=== PATIENT | female | born 1945 | race African-American/Black ===

== ENCOUNTER 2020-09-20 16:22 | Inpatient (IN) | payer MEDICARE, MEDICAID, SELFPAY ==
[2020-09-20] VITALS (41 sets, daily range): BP systolic 170–201; BP diastolic 89–126; PULSE 105–136; RESP 20–57; TEMP 36.1–36.3; O2SAT 92–100; BMI 25.9
--- NOTE | ~2020-09-20 | XR_ITS ---
XR chest 1V 09/20/2020 17:11 Indication: Weakness. Poor historian. Procedure: AP view of the chest Comparison: No prior studies for comparison. Findings: Status post median sternotomy for CABG. Heart size normal for technique. No focal air space disease, pulmonary edema, pleural effusion or suspected pneumothorax. Impression: 1: No acute cardiopulmonary disease. Reviewed, dictated and finalized at location A. CLUB HEAD INSPECTOR Impression: 1: No acute cardiopulmonary disease.
--- NOTE | ~2020-09-20 | CT_ITS ---
EXAMINATION: CT cervical spine wo con DATE: 09/20/2020 17:42 INDICATION: Neck pain. TECHNIQUE: Computed tomography (CT) of the cervical spine was performed without intravenous contrast. The dose-length product was 337 mGy-cm. Automated exposure control and iterative reconstruction tech nique were employed. COMPARISON: None FINDINGS: There is dextroscoliosis of the cervical spine. There is mild multilevel uncinate hypertrop hy. There is carotid atherosclerosis. Odontoid process within normal limits. Mild emphysema of the bahman ng apices. No acute fracture or traumatic malalignment. There is an old spinous process fracture of C 7. IMPRESSION: 1. No acute abnormality of the cervical spine. 2: Mild cervical spondylosis with dextrocurvature of the cervical spine. Reviewed, dictated and finalized at location A. RT/EXPORT ADMINISTRATOR
--- NOTE | ~2020-09-20 | CT_ITS ---
EXAMINATION: CT abdomen pelvis wo con DATE: 09/20/2020 17:42 INDICATION: Patient is confused. Weakness. Back pain. TECHNIQUE: Computed tomography (CT) of the abdomen and pelvis was performed without intravenous contr ast. The dose-length product was 704.03 mGy-cm. Automated exposure control and iterative reconstructi on technique were employed. COMPARISON: None. FINDINGS: There is bibasilar atelectasis. Heart size normal. No significant pleural or pericardial ef fusion. There is moderate diffuse atherosclerosis without aneurysm. No lymphadenopathy. No free air or free f luid. Tiny fat-containing umbilical hernia. Colonic diverticulosis without evidence for diverticuliti s. There is a 3.6 cm left adrenal mass. There is a hyperdense cyst of the left kidney posteriorly. No renal stones or hydronephrosis. Bladder is decompressed. There is fusion at L4-5. There is moderate- severe lumbar spondylosis. IMPRESSION: 1. No acute abdominal abnormality. 2: Left adrenal mass measuring 3.6 cm which may represent an adenoma or less likely metastatic diseas e. Reviewed, dictated and finalized at location A. STRIPER IMPRESSION: 1. No acute abdominal abnormality. 2: Left adrenal mass measuring 3.6 cm which may represent an adenoma or less li leo metastatic disease.
--- NOTE | ~2020-09-20 | CT_ITS ---
EXAMINATION: CT brain wo con DATE: 09/20/2020 17:42 INDICATION: Weakness TECHNIQUE: Computed tomography (CT) of the head was performed without intravenous contrast. The dose- length product was 605.33 mGy-cm. The mA was adjusted according to patient size. Iterative reconstruc tion technique was employed. COMPARISON: None FINDINGS: Generalized atrophy. There are scattered moderate periventricular and subcortical white mat ter changes, most likely related to small vessel ischemic disease (microangiopathy). No acute intracr anial hemorrhage, infarction, mass or mass effect. Visualized aspects of the sinuses and mastoids are pneumatized. No depressed skull fractures. IMPRESSION: 1. No acute intracranial abnormality. Reviewed, dictated and finalized at location A. E CREW SUPERVISOR
--- NOTE | 2020-09-20 16:53 | ECG_ITS ---
Measurements Intervals [place] Rate: 130 P: 80 GA: 136 QRS: 55 QRSD: 61 T: 49 QT: 294 QTc: 433 Interpretive Statements SINUS TACHYCARDIA BORDERLINE ST-T WAVE ABNORMALITY- INFERIOR LEADS BASELINE ARTIFACT- I, II, III, AVR, AVL, AVF ABNORMAL ECG Electronically Signed On 09-20-2020 19:20:11 BUMP GRADER OPERATOR by Brian Monterroso D.O.
--- NOTE | 2020-09-20 16:54 | ED.WEAKNESS ---
HPI - Weakness General Chief complaint: Weakness Stated complaint: neck pain x 5 days Time Seen by Provider: 09/20/20 16:53 History of Present Illness HPI Narrative: 75 yo female w/ DM presents to the ED for weakness. Her family member reports that she has had increasing weakness for the past few days, now she is not able to stand or walk on her own. She has also been having worsening neck pain, which she says is new. SHe denies any fall or injury. She has not been monitoring her blood sugar. She does endorse occasional SOB. No focal weakness, fever, dysuria, chest pain. History limited by poor historian. Related Data Home Medications Medication Instructions Recorded Confirmed aspirin [Aspir-81] 81 mg PO DAILY 09/20/20 09/20/20 dexamethasone 20 mg PO WEEKLY 09/20/20 09/20/20 furosemide 20 mg PO DAILY 09/20/20 09/20/20 glimepiride 1 mg PO BID 09/20/20 09/20/20 isosorbide mononitrate 30 mg PO DAILY 09/20/20 09/20/20 losartan 100 mg PO DAILY 09/20/20 09/20/20 metformin 1,000 mg PO DAILY 09/20/20 09/20/20 methimazole 5 mg PO DAILY 09/20/20 09/20/20 metoprolol succinate 50 mg PO DAILY 09/20/20 09/20/20 pantoprazole 40 mg PO DAILY 09/20/20 09/20/20 potassium chloride 20 meq PO DAILY 09/20/20 09/20/20 Allergies Allergy/AdvReac Type Severity Reaction Status Date / Time codeine Allergy Nausea and Verified 09/20/20 16:47 Vomiting Penicillins Allergy Unknown Verified 09/20/20 16:47 Sulfa (Sulfonamide Allergy Unknown Verified 09/20/20 16:47 Antibiotics) Review of Systems Review of Systems: All systems reviewed & are unremarkable except as noted in HPI and below Constitutional: Constitutional: Reports fatigue, Denies fever(s) and Reports weakness ENT: Denies sore throat Cardiovascular: Cardiovascular: Denies chest pain Respiratory: Respiratory: Reports dyspnea Gastrointestinal: Gastrointestinal: Denies vomiting Genitourinary: Genitourinary: Denies dysuria Musculoskeletal: Musculoskeletal: Reports back pain Neurologic: Reports dizziness, Denies focal weakness and Reports weakness [facility] Past Medical History Medical History (Updated 09/22/20 @ 17:36 by Corby Woods MD) CHF (congestive heart failure) COPD (chronic obstructive pulmonary disease) Coronary artery disease Diabetes mellitus Essential hypertension GERD (gastroesophageal reflux disease) Hyperlipidemia Migraines Multiple myeloma Obstructive sleep apnea on CPAP Surgical History Surgical History (Updated 09/20/20 @ 23:02 by Martita Nunez DO) History of tonsillectomy and adenoidectomy Hx of CABG 3 vessel Hx of cholecystectomy Family History Family History Sibling Acute myocardial infarction Father Asthma Mother Diabetes mellitus Social History Social History (Updated 09/20/20 @ 23:06 by Martita Nunez DO) Social History: Primary care physician: Dr. Ryan Chu Code status: Full code Surrogate decision maker: Franky Gonzalez (son) Smoking packs per day: 0.5 Smoking cigarettes per day: 10.0 Smoking status: Current every day smoker Tobacco type: cigarettes Alcohol intake: never Substance use: never Substance use type: does not use Living arrangements: with family Gender identity (if verbalized by the patient): Female Sexual Orientation (if Verbalized by the Patient): Straight or Heterosexual Spiritual care concerns: No Comments history limited by poor historian Exam Const: General: no acute distress, alert and ill appearing acutely and chronically Orientation/consciousness: patient oriented x3 HENMT: Mouth: Yes dry mucous membranes Resp: Effort & Inspection: normal respiratory effort Auscultation: clear to auscultation bilaterally Cardio: Rate: tachycardic Rhythm: regular rhythm GI: GI Palp: Yes Tenderness to palpation present (GI) (diffuse) and Yes Guarding due to palpation present (GI) Skin: General s
[2020-09-20 17:11] LABS: Basophils Absolute Auto 0.1 K/mm3 (0.0-0.1); Basophils Percent Auto 0.5 % (0.2-1.2); Eosinophils Percent Auto 0.2 % (0-4.4); Hematocrit 41.1 % (37.0-47.0); Hemoglobin 13.3 g/dL (12.0-15.0); Immature Granulocyte Absolute 0.05 K/mm3 (0.00-0.031); Immature Granulocyte Percent A 0.5 % (0-0.5); Lymphocytes Absolute Auto 1.23 K/mm3 (0.9-3.2); Lymphocytes Percent Auto 11.1 % (18.3-44.2); Mean Corpuscular HGB Conc 32.4 g/dl (32-36); Mean Corpuscular Hemoglobin 28.4 pg (26-34); Mean Corpuscular Volume 87.6 fl (80-100); Mean Platelet Volume 9.5 fl (7.4-10.4); Monocytes Absolute Auto 1.3 K/mm3 (0.1-0.6); Neutrophils Absolute Auto 8.4 K/mm3 (1.3-6.7); Neutrophils Percent Auto 75.7 % (45.5-73.1); Nucleated Red Blood Cells Perc 0.2 % (0.0-0.2); Platelet Count Result 443 k/mm3 (150-375); Red Blood Count 4.69 M/mm3 (4.2-5.4); Red Cell Distribution Width 17.2 % (11.5-14.5)
[2020-09-20 17:23] LABS: Alanine Aminotransferase 16 U/L (4-35); Albumin Level 3.6 g/dL (3.5-5.1); Alkaline Phosphatase 97 U/L (38-126); Anion Gap 5 mmol/L (8-16); Aspartate Amino Transferase 17 U/L (14-36); Bilirubin,Total 0.5 mg/dL (0.2-1.3); Blood Urea Nitrogen 12 mg/dL (7-17); Calcium 11.7 mg/dL (8.4-10.2); Carbon Dioxide 31 mmol/L (22-30); Chloride 105 mmol/L (98-107); Estimated CRCL calculation 44 ml/min; Estimated Glomerular Filt Rate > 60; Glucose 373 mg/dL (65-105); Potassium 3.8 mmol/L (3.4-5.0); Sodium 141 mmol/L (137-145)
[2020-09-20 17:31] LABS: Lipase 81 U/L (23-300)
[2020-09-20 17:31] LABS: Lactic Acid Reflex 1.4 mmol/L (0.7-2.1)
[2020-09-20 17:35] LABS: Glucose Point of Care 379 (65-105)
[2020-09-20 17:36] LABS: Beta-Hydroxybutyrate/Acetoacetate 0.71 mmol/L (0.02-0.27)
[2020-09-20 17:38] LABS: Add Urine Microscopic? YES; Appearance Urine Clear (Clear); Bilirubin Urine Negative (Negative); Blood Urine 1+ (Negative); Color Urine Yellow (Yellow); Glucose Urine UA 3+ mg/dL (Negative); Ketones Urine Trace mg/dL (Negative); Leukocyte Esterase Ur Negative LEU/UL (Negative); Mucus Urine Rare /lpf; Nitrate Urine Negative (Negative); Protein Urine 1+ mg/dL (Negative); Specific Grav Ur 1.028 (1.001-1.035); Squamous Epithelial Cell Urine Occasional /hpf (Few); Urobilinogen Urine Negative mg/dL (<2.0); WBC Urine 0-3 /hpf
[2020-09-20] MEDS: SODIUM CHLORIDE 0.9% IV 1,000 ML 999 ML IV CONT (17:53)
[2020-09-20] MEDS: INSULIN HUMAN REGULAR (*BKC) 100 UNITS/ML 6 UNITS IV PUSH (17:55)
[2020-09-20 18:06] LABS: INR 1.1; Prothrombin Time 14.3 Seconds (11.1-14.7)
[2020-09-20 18:07] LABS: Partial Thromboplastin Time 30.6 SECONDS (22.3-36.8)
[2020-09-20 19:27] LABS: Thyroid Stimulating Hormone < 0.015 uIU/mL (0.465-4.680)
[2020-09-20] MEDS: SODIUM CHLORIDE 0.9% IV 500 ML 999 ML IV CONT (19:55)
[2020-09-20] MEDS: LABETALOL HCL INJ 100 MG/20 ML VIAL 10 MG IV PUSH (19:56)
--- NOTE | 2020-09-20 22:41 | ADMGEN ---
This patient, Dahlia Leon, was admitted to IMU Room 206-01 on 09/20/20 at 2205. Patient/family oriented to hospital policies and general routines including ID bracelet, bed and alarms, visiting hours, pain management, procedures, bathroom and other care routines, personal items, smoking policy, room service/diet, and visiting hours. Information on how to activate the Rapid Response Team has been discussed. Patient/Family are encouraged to report perceived risks to care and to ask questions if they do not understand what they are told or what they should do.
--- NOTE | 2020-09-20 22:51 | PM.IMHP ---
H&P: HPI History of Present Illness Date/Time: 09/20/20 23:30 Chief Complaint: Weakness, confusion Narrative: Dahlia Leon is a 75 year old female with a past medical history of multiple myeloma, type 2 diabetes mellitus, and hyperthyroidism who presented to the ER from home for evaluation of increased weakness and increased confusion from baseline. Source of information is ER records and family report. At the time of my evaluation the patient is oriented only to her name and is not answering questions. She will intermittently follow simple commands. Family reported that the patient had been having increased weakness for the last few days. She had not been able to stand or walk on her own. He had reported worsening neck pain. She had not had any fall or known injury. She does have a history of diabetes but has not been checking her blood glucoses. In the ER the patient had reported shortness of breath and was noted to be tachypneic. She denies any chest pain. The patient herself was a poor historian in the ER. At the time of my evaluation the patient was not answering questions and was wearing auto titrating CPAP. Was noted to be tachycardic in the ER. Labs obtained at that time demonstrated that her hyperthyroidism has not been adequately controlled with medications. Was noted to be hyperglycemic and hypercalcemic. She was admitted as observation status in the setting. Review of Systems Review of Systems: ROS unobtainable: Yes unobtainable due to medical condition (Encephalopathy) [facility] Past Medical History Medical History (Updated 09/21/20 @ 03:12 by Martita Nunez DO) CHF (congestive heart failure) COPD (chronic obstructive pulmonary disease) Coronary artery disease Diabetes mellitus Essential hypertension GERD (gastroesophageal reflux disease) Hyperlipidemia Migraines Multiple myeloma Obstructive sleep apnea on CPAP Surgical History Surgical History (Updated 09/20/20 @ 23:02 by Martita Nunez DO) History of tonsillectomy and adenoidectomy Hx of CABG 3 vessel Hx of cholecystectomy Family History Family History Sibling Acute myocardial infarction Father Asthma Mother Diabetes mellitus Social History Social History (Updated 09/20/20 @ 23:06 by Martita Nunez DO) Social History: Primary care physician: Dr. Ryan Chu Code status: Full code Surrogate decision maker: Franky Gonzalez (son) Smoking packs per day: 0.5 Smoking cigarettes per day: 10.0 Smoking status: Current every day smoker Tobacco type: cigarettes Alcohol intake: never Substance use: never Substance use type: does not use Living arrangements: with family Gender identity (if verbalized by the patient): Female Sexual Orientation (if Verbalized by the Patient): Straight or Heterosexual Spiritual care concerns: No Meds Home Medications and Allergies Home Medications Medication Instructions Recorded Confirmed Type aspirin [Aspir-81] 81 mg PO DAILY 09/20/20 09/20/20 History dexamethasone 20 mg PO WEEKLY 09/20/20 09/20/20 History furosemide 20 mg PO DAILY 09/20/20 09/20/20 History glimepiride 1 mg PO BID 09/20/20 09/20/20 History isosorbide mononitrate 30 mg PO DAILY 09/20/20 09/20/20 History losartan 100 mg PO DAILY 09/20/20 09/20/20 History metformin 1,000 mg PO DAILY 09/20/20 09/20/20 History methimazole 5 mg PO DAILY 09/20/20 09/20/20 History metoprolol succinate 50 mg PO DAILY 09/20/20 09/20/20 History pantoprazole 40 mg PO DAILY 09/20/20 09/20/20 History potassium chloride 20 meq PO DAILY 09/20/20 09/20/20 History Allergies Allergy/AdvReac Type Severity Reaction Status Date / Time codeine Allergy Nausea and Verified 09/20/20 16:47 Vomiting Penicillins Allergy Unknown Verified 09/20/20 16:47 Sulfa (Sulfonamide Allergy Unknown Verified 09/20/20 16:47 Antibiotics) Vital Signs Vital Signs - 24 hr 09/20
[2020-09-20] MEDS: LACTATED RINGERS 1,000 ML 125 ML IV CONT (23:04)
[2020-09-20 23:11] LABS: Glucose Point of Care 171 (65-105)
[2020-09-21] VITALS (18 sets, daily range): BP systolic 151–206; BP diastolic 79–101; PULSE 74–108; RESP 12–24; TEMP 36–37; O2SAT 95–100
[2020-09-21] MEDS: METOPROLOL TARTRATE INJ 5 MG/5 ML VIAL IV PUSH (00:06)
[2020-09-21] MEDS: ATORVASTATIN 10 MG TABLET PO ×2 (00:07→19:56)
[2020-09-21] MEDS: methiMAzole 5 MG TAB PO ×4 (00:18→21:01)
[2020-09-21] MEDS: METOPROLOL TARTRATE INJ 5 MG/5 ML VIAL 10 MG IV PUSH ×2 (05:27→20:57)
[2020-09-21 05:49] LABS: Hemoglobin 11.4 g/dL (12.0-15.0); Mean Corpuscular HGB Conc 31.7 g/dl (32-36); Mean Corpuscular Hemoglobin 28.2 pg (26-34); Mean Corpuscular Volume 89.1 fl (80-100); Mean Platelet Volume 9.8 fl (7.4-10.4); Platelet Count Result 400 k/mm3 (150-375); Red Blood Count 4.04 M/mm3 (4.2-5.4); Red Cell Distribution Width 17.2 % (11.5-14.5); White Blood Count 9.5 K/mm3 (4.5-10.0)
[2020-09-21 06:02] LABS: Anion Gap 3 mmol/L (8-16); Blood Urea Nitrogen 8 mg/dL (7-17); Calcium 10.2 mg/dL (8.4-10.2); Carbon Dioxide 29 mmol/L (22-30); Chloride 109 mmol/L (98-107); Estimated CRCL calculation 57 ml/min; Estimated Glomerular Filt Rate > 60; Glucose 196 mg/dL (65-105); Phosphorus 2.9 mg/dL (2.5-4.5); Potassium 3.7 mmol/L (3.4-5.0); Sodium 141 mmol/L (137-145)
[2020-09-21] MEDS: LACTATED RINGERS 1,000 ML 125 ML IV CONT ×3 (06:50→23:09)
[2020-09-21] MEDS: METOPROLOL SUCCINATE EXT REL 50 MG TABCR PO (07:59)
[2020-09-21] MEDS: ASPIRIN 81 MG ENTERIC TABLET PO (07:59)
[2020-09-21] MEDS: GLIMEPIRIDE 1 MG TABLET PO ×2 (07:59→16:43)
[2020-09-21] MEDS: PANTOPRAZOLE 40 MG TABLET PO (08:00)
[2020-09-21] MEDS: POTASSIUM CHLORIDE 20 MEQ TABLET.ER PO (08:00)
[2020-09-21] MEDS: metFORMIN HCL 500 MG TABLET 1000 MG PO (08:00)
[2020-09-21] MEDS: LOSARTAN POTASSIUM 100 MG TABLET PO (08:00)
[2020-09-21] MEDS: ISOSORBIDE MONONITRATE 30 MG TAB.ER.24H PO (08:00)
[2020-09-21] MEDS: ENOXAPARIN 40 MG/0.4 ML SYRINGE SUB-Q (08:01)
[2020-09-21 08:37] LABS: Glucose Point of Care 195 (65-105)
[2020-09-21] MEDS: INSULIN ASPART (*BKC) 100 UNITS/ML SUB-Q ×2 (12:01→16:50)
[2020-09-21 12:26] LABS: Glucose Point of Care 227 (65-105)
--- NOTE | 2020-09-21 13:02 | PM.IMPN ---
Progress Note: A&P Assessment and Plan (1) Metabolic encephalopathy: Code(s): G93.41 - Metabolic encephalopathy Status: Acute Assessment and Plan: Resolved. Supportive care Continue to monitor (2) Uncontrolled hypertension: Code(s): I10 - Essential (primary) hypertension Status: Acute Assessment and Plan: Re started home meds Improved. (3) Type 2 diabetes mellitus with hyperglycemia: Qualifiers: Diabetes mellitus correction insulin use: without correction use Qualified Code(s): E11.65 - Type 2 diabetes mellitus with hyperglycemia Code(s): E11.65 - Type 2 diabetes mellitus with hyperglycemia Status: Acute Assessment and Plan: ISS as needed 1800 calorie diet Accu checks ACHS Metformin + Gyburide (4) Hyperthyroidism: Code(s): E05.90 - Thyrotoxicosis, unspecified without thyrotoxic crisis or storm Status: Acute Assessment and Plan: Dexamethasone + Methimazole (5) Hypercalcemia: Code(s): E83.52 - Hypercalcemia Status: Acute Assessment and Plan: Resolved IV fluids running. Subjective Date/time seen: 09/21/20 13:02 I feel well Review of Systems Review of Systems: Narrative: Unable to get a thorough review Cardiovascular: Comments: Chest pain with radiation to the jaw bilaterally Exam Narrative: Exam Narrative: Sitting in bed. Const: General: comfortable, no acute distress, alert, awake, Physically active and other (Chronically ill looking.) Nutritional Appearance: thin Orientation/consciousness: patient oriented x3 HENMT: Head: normocephalic Ears: hearing grossly normal bilaterally General nose exam: Normal external nose present Face and sinus: normal facial exam Eyes: General: appearance normal, both eyes and all related structures Pupils: Equal, round and reactive pupils present EOM: EOMs intact bilaterally Neck: Neck: no lymphadenopathy, supple and no JVD Lymphatic: no lymphadenopathy noted Resp: Effort & Inspection: able to speak in complete sentences Auscultation: clear to auscultation bilaterally Cardio: Jugular venous distension: no JVD Rate: regular rate Rhythm: regular rhythm GI: GI Palp: Yes Soft to palpation and Yes No hepatosplenomegaly present Skin: Rashes: no rashes Neuro: General: patient oriented x3 and CN's II-XI intact bilaterally Cranial nerves: Yes CN's II-XII intact bilaterally and Yes Equal, round and reactive pupils present Cognition (Neuro): normal cognition Motor exam (neuro): 12/18 motor strength present throughout Extrem: General: no pedal edema Objective Data Vital Signs Vital Signs: Vital Signs - 24 hr 09/20/20 16:33 09/20/20 16:48 09/20/20 16:49 Temperature 97.4 F L Pulse Rate 136 H 132 H 131 H Respiratory Rate 20 35 H 26 H Blood Pressure 185/95 H 195/107 H Pulse Oximetry 96 96 95 09/20/20 17:00 09/20/20 17:01 09/20/20 17:02 Temperature Pulse Rate 130 H 126 H 128 H Respiratory Rate 22 H 28 H 31 H Blood Pressure 182/113 H 182/113 H Pulse Oximetry 95 92 97 09/20/20 17:15 09/20/20 17:44 09/20/20 17:45 Temperature Pulse Rate 126 H 116 H 114 H Respiratory Rate 30 H 29 H 28 H Blood Pressure 190/90 H Pulse Oximetry 97 98 09/20/20 17:46 09/20/20 17:47 09/20/20 18:00 Temperature Pulse Rate 115 H 110 H 112 H Respiratory Rate 27 H 27 H 28 H Blood Pressure 193/98 H Pulse Oximetry 93 97 97 09/20/20 18:01 09/20/20 18:15 09/20/20 18:17 Temperature Pulse Rate 112 H 114 H 117 H Respiratory Rate 28 H 30 H 28 H Blood Pressure 199/93 H 194/100 H Pulse Oximetry 95 100 09/20/20 18:30 09/20/20 18:31 09/20/20 18:45 Temperature Pulse Rate 121 H 122 H 123 H Respiratory Rate 30 H 21 H 26 H Blood Pressure 189/118 H Pulse Oximetry 97 98 99 09/20/20 18:46 09/20/20 19:01 09/20/20 19:02 Temperature Pulse Rate 125 H 125 H 123 H Respiratory Rate 27 H 37 H 33 H Blood Pressure 170/110 H 190/95 H Pulse
[2020-09-21 13:10] LABS: Hemoglobin A1C 9.6 % (<5.7)
[2020-09-21] MEDS: ACETAMINOPHEN 500 MG TABLET 1000 MG PO (13:23)
[2020-09-21 16:51] LABS: Glucose Point of Care 255 (65-105)
[2020-09-21 20:34] LABS: Glucose Point of Care 296 (65-105)
[2020-09-22] VITALS (16 sets, daily range): BP systolic 169–210; BP diastolic 70–97; PULSE 62–115; RESP 18–26; TEMP 36.2–37.4; O2SAT 95–99
[2020-09-22] MEDS: METOPROLOL TARTRATE INJ 5 MG/5 ML VIAL 10 MG IV PUSH ×3 (03:05→21:10)
[2020-09-22 04:30] LABS: Glucose Point of Care 164 (65-105)
[2020-09-22] MEDS: methiMAzole 5 MG TAB PO ×3 (05:30→20:30)
[2020-09-22] MEDS: LACTATED RINGERS 1,000 ML 125 ML IV CONT (07:24)
[2020-09-22 07:59] LABS: Glucose Point of Care 172 (65-105)
[2020-09-22] MEDS: metFORMIN HCL 500 MG TABLET 1000 MG PO (08:06)
[2020-09-22] MEDS: PANTOPRAZOLE 40 MG TABLET PO (08:06)
[2020-09-22] MEDS: METOPROLOL SUCCINATE EXT REL 50 MG TABCR PO (08:06)
[2020-09-22] MEDS: GLIMEPIRIDE 1 MG TABLET PO ×2 (08:06→16:49)
[2020-09-22] MEDS: ISOSORBIDE MONONITRATE 30 MG TAB.ER.24H PO (08:07)
[2020-09-22] MEDS: ASPIRIN 81 MG ENTERIC TABLET PO (08:07)
[2020-09-22] MEDS: POTASSIUM CHLORIDE 20 MEQ TABLET.ER PO (08:07)
[2020-09-22] MEDS: ENOXAPARIN 40 MG/0.4 ML SYRINGE SUB-Q (08:07)
[2020-09-22] MEDS: LOSARTAN POTASSIUM 100 MG TABLET PO (08:07)
[2020-09-22] MEDS: ALBUTEROL SULFATE (*SP) AEROSOL 1 PUFF 2 PUFF INHALATION (09:12)
[2020-09-22 11:33] LABS: Glucose Point of Care 135 (65-105)
--- NOTE | 2020-09-22 13:20 | PM.IMPN ---
Progress Note: A&P Assessment and Plan (1) Metabolic encephalopathy: Code(s): G93.41 - Metabolic encephalopathy Status: Acute Assessment and Plan: Resolved Likely secondary to hypertensive urgency Patient is responding appropriately to questions (2) Uncontrolled hypertension: Code(s): I10 - Essential (primary) hypertension Status: Acute Assessment and Plan: Home meds have been re started. (3) Type 2 diabetes mellitus with hyperglycemia: Qualifiers: Diabetes mellitus terminal operations supervisor insulin use: without fci use Qualified Code(s): E11.65 - Type 2 diabetes mellitus with hyperglycemia Code(s): E11.65 - Type 2 diabetes mellitus with hyperglycemia Status: Acute Assessment and Plan: ISS as needed Accu checks ACHS Glimepiride Metformin (4) Hyperthyroidism: Code(s): E05.90 - Thyrotoxicosis, unspecified without thyrotoxic crisis or storm Status: Acute Assessment and Plan: Continue Methimazol (5) Hypercalcemia: Code(s): E83.52 - Hypercalcemia Status: Acute Assessment and Plan: Resolved Subjective Date/time seen: 09/22/20 13:20 States that she feels better and asks when she can go home. Review of Systems Review of Systems: Narrative: jaw pain. Constitutional: Comments: nom fevers, no rigors, no chills. ENT: Comments: no throat pain. Cardiovascular: Comments: no chest pain, no orthopnea, no pnd, chest pain. Respiratory: Comments: no sob, no cough, no sputum production. Gastrointestinal: Comments: no n/v/abdominal pain. Musculoskeletal: Comments: no joint pain. Integumentary/Breasts: Comments: no rashes. Neurologic: Comments: no sensory motor deficit. Exam Narrative: Exam Narrative: Lying in bed Const: General: comfortable, no acute distress, alert, awake and Physically active Nutritional Appearance: thin Orientation/consciousness: patient oriented x3 HENMT: Head: normocephalic Ears: hearing grossly normal bilaterally General nose exam: Normal external nose present Face and sinus: normal facial exam Neck: Neck: no lymphadenopathy, supple and no JVD Resp: Effort & Inspection: able to speak in complete sentences Auscultation: clear to auscultation bilaterally Cardio: Jugular venous distension: no JVD Rate: regular rate Rhythm: regular rhythm GI: Inspection: normal to inspection GI Palp: Yes Soft to palpation and Yes No hepatosplenomegaly present Skin: General skin exam: normal color Wounds: no wounds Neuro: General: patient oriented x3 and CN's II-XI intact bilaterally Cranial nerves: Yes CN's II-XII intact bilaterally and Yes Equal, round and reactive pupils present Cognition (Neuro): normal cognition Motor exam (neuro): 5/5 motor strength present throughout Extrem: General: no pedal edema Objective Data Vital Signs Vital Signs: Vital Signs - 24 hr 09/21/20 16:00 09/21/20 20:00 09/21/20 20:35 Temperature 98.2 F 96.8 F L Pulse Rate 94 86 86 Respiratory Rate 12 20 20 Blood Pressure 151/96 H 175/79 H Pulse Oximetry 98 100 100 09/21/20 20:57 09/21/20 23:39 09/21/20 23:40 Temperature 97 F L Pulse Rate 80 81 Respiratory Rate 20 Blood Pressure 202/87 H 206/101 H Pulse Oximetry 95 09/22/20 00:00 09/22/20 03:01 09/22/20 03:05 Temperature 97.1 F L Pulse Rate 115 H 87 87 Respiratory Rate 20 20 Blood Pressure 210/94 H Pulse Oximetry 96 96 09/22/20 04:00 09/22/20 04:13 09/22/20 08:00 Temperature 97.8 F 99.3 F Pulse Rate 62 62 73 Respiratory Rate 20 20 26 H Blood Pressure 182/74 H 169/70 H Pulse Oximetry 99 99 95 09/22/20 08:06 09/22/20 09:16 09/22/20 11:44 Temperature Pulse Rate 84 Respiratory Rate Blood Pressure 181/88 H Pulse Oximetry 96 09/22/20 11:51 Temperature Pulse Rate 72 Respiratory Rate Blood Pressure Pulse Oximetry Intake/Output Intake/Output: Intake & Output 09/19/20 09/20/20 09/21/20 0
[2020-09-22 15:51] LABS: Glucose Point of Care 209 (65-105)
[2020-09-22] MEDS: INSULIN ASPART (*BKC) 100 UNITS/ML SUB-Q (16:49)
[2020-09-22] MEDS: ATORVASTATIN 10 MG TABLET PO (20:30)
[2020-09-22 20:33] LABS: Glucose Point of Care 182 (65-105)
[2020-09-23] VITALS (12 sets, daily range): BP systolic 150–207; BP diastolic 73–92; PULSE 67–93; RESP 17–22; TEMP 36–36.9; O2SAT 96–100
[2020-09-23 04:54] LABS: Basophils Percent Auto 0.4 % (0.2-1.2); Eosinophils Absolute Auto 0.1 K/mm3 (0-0.3); Eosinophils Percent Auto 1.5 % (0-4.4); Hematocrit 35.7 % (37.0-47.0); Hemoglobin 11.3 g/dL (12.0-15.0); Immature Granulocyte Absolute 0.05 K/mm3 (0.00-0.031); Immature Granulocyte Percent A 0.6 % (0-0.5); Lymphocytes Absolute Auto 1.41 K/mm3 (0.9-3.2); Lymphocytes Percent Auto 16.5 % (18.3-44.2); Mean Corpuscular HGB Conc 31.7 g/dl (32-36); Mean Corpuscular Hemoglobin 27.6 pg (26-34); Mean Corpuscular Volume 87.3 fl (80-100); Mean Platelet Volume 9.5 fl (7.4-10.4); Monocytes Absolute Auto 1.1 K/mm3 (0.1-0.6); Neutrophils Absolute Auto 5.8 K/mm3 (1.3-6.7); Nucleated Red Blood Cells Perc 0.4 % (0.0-0.2); Platelet Count Result 377 k/mm3 (150-375); Red Blood Count 4.09 M/mm3 (4.2-5.4); Red Cell Distribution Width 16.9 % (11.5-14.5); White Blood Count 8.6 K/mm3 (4.5-10.0)
[2020-09-23 05:11] LABS: Anion Gap 1 mmol/L (8-16); Blood Urea Nitrogen 7 mg/dL (7-17); Calcium 10.4 mg/dL (8.4-10.2); Carbon Dioxide 36 mmol/L (22-30); Chloride 104 mmol/L (98-107); Estimated CRCL calculation 39 ml/min; Estimated Glomerular Filt Rate > 60; Glucose 130 mg/dL (65-105); Potassium 3.3 mmol/L (3.4-5.0); Sodium 141 mmol/L (137-145)
[2020-09-23] MEDS: methiMAzole 5 MG TAB PO ×3 (05:58→20:16)
[2020-09-23 07:47] LABS: Glucose Point of Care 133 (65-105)
[2020-09-23] MEDS: METOPROLOL SUCCINATE EXT REL 50 MG TABCR PO (08:58)
[2020-09-23] MEDS: ISOSORBIDE MONONITRATE 30 MG TAB.ER.24H PO (08:59)
[2020-09-23] MEDS: ASPIRIN 81 MG ENTERIC TABLET PO (08:59)
[2020-09-23] MEDS: metFORMIN HCL 500 MG TABLET 1000 MG PO (09:00)
[2020-09-23] MEDS: LOSARTAN POTASSIUM 100 MG TABLET PO (09:00)
[2020-09-23] MEDS: PANTOPRAZOLE 40 MG TABLET PO (09:00)
[2020-09-23] MEDS: POTASSIUM CHLORIDE 20 MEQ TABLET.ER PO (09:00)
[2020-09-23] MEDS: GLIMEPIRIDE 1 MG TABLET PO ×2 (09:08→17:39)
[2020-09-23] MEDS: ENOXAPARIN 40 MG/0.4 ML SYRINGE SUB-Q (09:08)
[2020-09-23] MEDS: METOPROLOL TARTRATE INJ 5 MG/5 ML VIAL 10 MG IV PUSH (09:49)
--- NOTE | 2020-09-23 11:31 | PM.IMPN ---
Progress Note: A&P Assessment and Plan (1) Uncontrolled hypertension: Code(s): I10 - Essential (primary) hypertension Status: Acute Assessment and Plan: Re started on her home meds Still hypertensive in am with SBP at 209 Will continue home meds Hydralazine prn as needed (2) Hyperthyroidism: Code(s): E05.90 - Thyrotoxicosis, unspecified without thyrotoxic crisis or storm Status: Acute Assessment and Plan: On Methimazol and Prednisone (3) Type 2 diabetes mellitus with hyperglycemia: Qualifiers: Diabetes mellitus oysterman insulin use: without oysterman use Qualified Code(s): E11.65 - Type 2 diabetes mellitus with hyperglycemia Code(s): E11.65 - Type 2 diabetes mellitus with hyperglycemia Status: Acute Assessment and Plan: On Glimepiride and Metformin ISS as needed Accu checks ACHS Carb consistent diet. (4) Metabolic encephalopathy: Code(s): G93.41 - Metabolic encephalopathy Status: Acute Assessment and Plan: Resolved Continue to monitor (5) Hypercalcemia: Code(s): E83.52 - Hypercalcemia Status: Acute Assessment and Plan: Resolved Continue to monitor IV fluids have been discontinued Subjective Date/time seen: 09/23/20 11:31 Patient states that she feels well. Review of Systems Review of Systems: Narrative: No new issues overnight. Constitutional: Comments: no fevers, no rigors, no chills. Cardiovascular: Comments: no chest pain or jaw pain. Respiratory: Comments: no sob, no cough. Gastrointestinal: Comments: no n/v/abdominal pain. Musculoskeletal: Comments: no joint pain. Integumentary/Breasts: Comments: no rashes Neurologic: Comments: no sensory motor deficit Exam Narrative: Exam Narrative: Lying in bed CPAP is on Const: General: no acute distress, alert, awake, Physically active and other (Chronically ill looking) Nutritional Appearance: thin Orientation/consciousness: patient oriented x3 HENMT: Head: normal to inspection and normocephalic Ears: hearing grossly normal bilaterally General nose exam: Normal external nose present Face and sinus: normal facial exam Eyes: General: appearance normal, both eyes and all related structures Pupils: Equal, round and reactive pupils present EOM: EOMs intact bilaterally Neck: Neck: no lymphadenopathy, supple and no JVD Resp: Effort & Inspection: able to speak in complete sentences Auscultation: clear to auscultation bilaterally Cardio: Rate: regular rate Rhythm: regular rhythm GI: GI Palp: Yes Soft to palpation and Yes No hepatosplenomegaly present Skin: Rashes: no rashes Neuro: General: patient oriented x3 and CN's II-XI intact bilaterally Cranial nerves: Yes CN's II-XII intact bilaterally and Yes Equal, round and reactive pupils present Cognition (Neuro): normal cognition Speech: normal speech Motor exam (neuro): 5/5 motor strength present throughout Extrem: General: no pedal edema Objective Data Vital Signs Vital Signs: Vital Signs - 24 hr 09/22/20 11:44 09/22/20 11:51 09/22/20 15:51 Temperature 98.1 F Pulse Rate 72 74 Respiratory Rate 18 Blood Pressure 181/88 H 193/97 H Pulse Oximetry 95 09/22/20 19:53 09/22/20 20:00 09/22/20 21:10 Temperature 97.1 F L Pulse Rate 85 90 88 Respiratory Rate 20 20 Blood Pressure 191/82 H Pulse Oximetry 99 99 09/22/20 22:25 09/22/20 23:22 09/23/20 02:45 Temperature Pulse Rate 82 82 77 Respiratory Rate 20 17 Blood Pressure Pulse Oximetry 98 98 09/23/20 04:00 09/23/20 08:17 09/23/20 08:58 Temperature 97.7 F 98.3 F Pulse Rate 79 76 84 Respiratory Rate 18 22 H Blood Pressure 162/82 H 207/86 H Pulse Oximetry 99 98 09/23/20 09:49 Temperature Pulse Rate 84 Respiratory Rate Blood Pressure Pulse Oximetry Intake/Output Intake/Output: Intake & Output 09/20/20 09/21/20 09/22/20 09/23/20 23:59 23:59 23:59 23:59 Intake Total 1
[2020-09-23 12:15] LABS: Glucose Point of Care 202 (65-105)
[2020-09-23] MEDS: hydrALAZINE HCL 20 MG/ML VIAL 10 MG IV PUSH (12:20)
[2020-09-23 17:01] LABS: Glucose Point of Care 164 (65-105)
[2020-09-23 18:27] LABS: SARS-CoV-2 RNA PCR Negative
[2020-09-23] MEDS: ATORVASTATIN 10 MG TABLET PO (20:16)
[2020-09-23] MEDS: ACETAMINOPHEN 500 MG TABLET 1000 MG PO (20:19)
[2020-09-23 20:31] LABS: Glucose Point of Care 235 (65-105)
[2020-09-24] VITALS (8 sets, daily range): BP systolic 140–190; BP diastolic 85–100; PULSE 85–109; RESP 16–20; TEMP 36–36.7; O2SAT 92–100
[2020-09-24] MEDS: methiMAzole 5 MG TAB PO ×3 (05:52→20:26)
[2020-09-24] MEDS: hydrALAZINE HCL 20 MG/ML VIAL 10 MG IV PUSH (05:52)
[2020-09-24] MEDS: ENOXAPARIN 40 MG/0.4 ML SYRINGE SUB-Q (08:22)
[2020-09-24] MEDS: POTASSIUM CHLORIDE 20 MEQ TABLET.ER PO (08:22)
[2020-09-24] MEDS: metFORMIN HCL 500 MG TABLET 1000 MG PO (08:22)
[2020-09-24] MEDS: GLIMEPIRIDE 1 MG TABLET PO (08:22)
[2020-09-24] MEDS: ASPIRIN 81 MG ENTERIC TABLET PO (08:22)
[2020-09-24] MEDS: METOPROLOL SUCCINATE EXT REL 50 MG TABCR PO (08:23)
[2020-09-24] MEDS: LOSARTAN POTASSIUM 100 MG TABLET PO (08:23)
[2020-09-24] MEDS: PANTOPRAZOLE 40 MG TABLET PO (08:23)
[2020-09-24] MEDS: ISOSORBIDE MONONITRATE 30 MG TAB.ER.24H PO (08:23)
[2020-09-24] MEDS: ACETAMINOPHEN 500 MG TABLET 1000 MG PO ×2 (08:24→20:28)
[2020-09-24 10:01] LABS: Glucose Point of Care 172 (65-105)
[2020-09-24 11:51] LABS: Glucose Point of Care 219 (65-105)
[2020-09-24] MEDS: INSULIN ASPART (*BKC) 100 UNITS/ML SUB-Q (12:43)
[2020-09-24 13:58] LABS: Basophils Percent Auto 0.4 % (0.2-1.2); Eosinophils Absolute Auto 0.1 K/mm3 (0-0.3); Eosinophils Percent Auto 0.8 % (0-4.4); Hematocrit 38.9 % (37.0-47.0); Hemoglobin 12.6 g/dL (12.0-15.0); Immature Granulocyte Absolute 0.04 K/mm3 (0.00-0.031); Immature Granulocyte Percent A 0.5 % (0-0.5); Lymphocytes Absolute Auto 1.36 K/mm3 (0.9-3.2); Lymphocytes Percent Auto 16.1 % (18.3-44.2); Mean Corpuscular HGB Conc 32.4 g/dl (32-36); Mean Corpuscular Hemoglobin 27.8 pg (26-34); Mean Corpuscular Volume 85.9 fl (80-100); Mean Platelet Volume 8.9 fl (7.4-10.4); Monocytes Absolute Auto 0.9 K/mm3 (0.1-0.6); Monocytes Percent Auto 10.4 % (2.6-8.5); Neutrophils Absolute Auto 6.1 K/mm3 (1.3-6.7); Neutrophils Percent Auto 71.8 % (45.5-73.1); Nucleated Red Blood Cells Perc 0.4 % (0.0-0.2); Platelet Count Result 386 k/mm3 (150-375); Red Blood Count 4.53 M/mm3 (4.2-5.4); Red Cell Distribution Width 17.1 % (11.5-14.5); White Blood Count 8.5 K/mm3 (4.5-10.0)
[2020-09-24 14:18] LABS: Alanine Aminotransferase 15 U/L (4-35); Albumin Level 3.3 g/dL (3.5-5.1); Alkaline Phosphatase 71 U/L (38-126); Anion Gap 2 mmol/L (8-16); Aspartate Amino Transferase 18 U/L (14-36); Bilirubin,Total 0.3 mg/dL (0.2-1.3); Blood Urea Nitrogen 10 mg/dL (7-17); Calcium 11.5 mg/dL (8.4-10.2); Carbon Dioxide 32 mmol/L (22-30); Chloride 105 mmol/L (98-107); Estimated CRCL calculation 50 ml/min; Estimated Glomerular Filt Rate > 60; Glucose 153 mg/dL (65-105); Potassium 4.1 mmol/L (3.4-5.0); Sodium 139 mmol/L (137-145)
--- NOTE | 2020-09-24 14:25 | PM.IMPN ---
Progress Note: A&P Assessment and Plan (1) Uncontrolled hypertension: Code(s): I10 - Essential (primary) hypertension Status: Acute Assessment and Plan: Re started on her home meds add lasix. Hydralazine prn as needed (2) Hyperthyroidism: Code(s): E05.90 - Thyrotoxicosis, unspecified without thyrotoxic crisis or storm Status: Acute Assessment and Plan: On Methimazol and Prednisone (3) Type 2 diabetes mellitus with hyperglycemia: Qualifiers: Diabetes mellitus group home insulin use: without group home use Qualified Code(s): E11.65 - Type 2 diabetes mellitus with hyperglycemia Code(s): E11.65 - Type 2 diabetes mellitus with hyperglycemia Status: Acute Assessment and Plan: On Glimepiride and Metformin ISS as needed Accu checks ACHS Carb consistent diet. (4) Metabolic encephalopathy: Code(s): G93.41 - Metabolic encephalopathy Status: Acute Assessment and Plan: Resolved Continue to monitor (5) Hypercalcemia: Code(s): E83.52 - Hypercalcemia Status: Acute Assessment and Plan: Calcium around 11. Subjective Date/time seen: 09/24/20 14:25 Interval history: 75 year old female with a past medical history of multiple myeloma, type 2 diabetes mellitus, and hyperthyroidism who presented to the ER from home for evaluation of increased weakness and increased confusion from baseline. Bp is better pt face looks swollen and her calcium is still high. Review of Systems Review of Systems: All systems reviewed & are unremarkable except as noted in HPI and below Exam Const: General: other (Chronically ill looking) Neck: Neck: no lymphadenopathy, supple and no JVD Lymphatic: no lymphadenopathy noted Resp: Effort & Inspection: able to speak in complete sentences Auscultation: clear to auscultation bilaterally Cardio: Jugular venous distension: no JVD Rate: regular rate Rhythm: regular rhythm GI: Inspection: normal to inspection Skin: General skin exam: normal color Rashes: no rashes Wounds: no wounds Neuro: General: patient oriented x3 and CN's II-XI intact bilaterally Cranial nerves: Yes CN's II-XII intact bilaterally and Yes Equal, round and reactive pupils present Cognition (Neuro): normal cognition Speech: normal speech Motor exam (neuro): 5/5 motor strength present throughout Extrem: General: no pedal edema Objective Data Vital Signs Vital Signs: Vital Signs - 24 hr 09/23/20 16:44 02/08/21 19:59 09/23/20 20:00 Temperature 36.9 C 36.4 C Pulse Rate 87 86 86 Respiratory Rate 20 20 20 Blood Pressure 159/73 H 188/86 H Pulse Oximetry 96 99 99 09/23/20 23:23 09/24/20 03:22 09/24/20 07:34 Temperature 36.0 C L 36.0 C L 36.2 C L Pulse Rate 67 87 109 H Respiratory Rate 20 20 18 Blood Pressure 172/82 H 190/97 H 182/100 H Pulse Oximetry 100 92 96 09/24/20 08:23 09/24/20 11:46 Temperature 36.5 C Pulse Rate 109 H 94 Respiratory Rate 16 Blood Pressure 140/91 H Pulse Oximetry 100 Intake/Output Intake/Output: Intake & Output 09/21/20 09/22/20 09/23/20 09/24/20 23:59 23:59 23:59 23:59 Intake Total 4275 1912 560 120 Balance 4275 1912 560 120 Meds/Results Medications: Active Medications Generic Name Dose Route Start Last Admin Trade Name Freq PRN Reason Stop Dose Admin Acetaminophen 1,000 mg 09/21/20 13:03 09/24/20 08:24 Acetaminophen 500 Mg Tablet PO 1,000 mg Q6H PRN Administration Mild Pain (1-3) or Fever Albuterol 2 puff 09/22/20 08:33 09/22/20 09:12 Albuterol Sulfate (*Sp) Aerosol 1 Puff INHALATION 2 puff Q6HRT PRN Administration Shortness Of Breath Or Wheezing Aspirin 81 mg 09/21/20 09:00 09/24/20 08:22 Aspirin 81 Mg Enteric Tablet PO 81 mg DAILY JEFERSON Administration Atorvastatin Calcium 10 mg 09/20/20 22:40 09/23/20 20:16 Atorvastatin 10 Mg Tablet PO 10 mg HS JEFERSON Administration Dextrose 12.5 gm 09/20/20 22:33
[2020-09-24] MEDS: FUROSEMIDE 40 MG TABLET PO (17:12)
[2020-09-24 17:18] LABS: Glucose Point of Care 101 (65-105)
[2020-09-24] MEDS: ATORVASTATIN 10 MG TABLET PO (20:26)
[2020-09-24 20:31] LABS: Glucose Point of Care 119 (65-105)
[2020-09-25] VITALS: PULSE 86
[2020-09-25 04:00] VITALS: BP 161/76; PULSE 88; RESP 20; TEMP 36.6; O2SAT 100
[2020-09-25 05:28] LABS: Anion Gap 4 mmol/L (8-16); Blood Urea Nitrogen 14 mg/dL (7-17); Calcium 11.3 mg/dL (8.4-10.2); Carbon Dioxide 35 mmol/L (22-30); Chloride 103 mmol/L (98-107); Estimated CRCL calculation 40 ml/min; Estimated Glomerular Filt Rate > 60; Glucose 102 mg/dL (65-105); Potassium 3.4 mmol/L (3.4-5.0); Sodium 142 mmol/L (137-145)
[2020-09-25] MEDS: methiMAzole 5 MG TAB PO (05:51)
[2020-09-25 08:00] VITALS: PULSE 90; RESP 20; O2SAT 100
[2020-09-25 08:33] VITALS: PULSE 90
[2020-09-25] MEDS: METOPROLOL SUCCINATE EXT REL 50 MG TABCR PO (08:33)
[2020-09-25] MEDS: PANTOPRAZOLE 40 MG TABLET PO (08:34)
[2020-09-25] MEDS: ISOSORBIDE MONONITRATE 30 MG TAB.ER.24H PO (08:34)
[2020-09-25] MEDS: GLIMEPIRIDE 1 MG TABLET PO (08:34)
[2020-09-25] MEDS: metFORMIN HCL 500 MG TABLET 1000 MG PO (08:34)
[2020-09-25] MEDS: FUROSEMIDE 40 MG TABLET PO (08:34)
[2020-09-25] MEDS: LOSARTAN POTASSIUM 100 MG TABLET PO (08:35)
[2020-09-25] MEDS: POTASSIUM CHLORIDE 20 MEQ TABLET.ER PO (08:35)
[2020-09-25] MEDS: ENOXAPARIN 40 MG/0.4 ML SYRINGE SUB-Q (08:35)
[2020-09-25] MEDS: ASPIRIN 81 MG ENTERIC TABLET PO (08:35)
--- NOTE | 2020-09-25 08:55 | PM.DS ---
DS: Admitting Diagnosis Admitting Diagnosis Admitting Diagnosis: Weakness and confusion DS: Discharge Diagnosis Discharge Diagnosis (1) Uncontrolled hypertension: Code(s): I10 - Essential (primary) hypertension Status: Acute Assessment and Plan: Re started on her home meds (2) Hyperthyroidism: Code(s): E05.90 - Thyrotoxicosis, unspecified without thyrotoxic crisis or storm Status: Acute Assessment and Plan: On Methimazol and Prednisone (3) Type 2 diabetes mellitus with hyperglycemia: Qualifiers: Diabetes mellitus terminal manager insulin use: without terminal manager use Qualified Code(s): E11.65 - Type 2 diabetes mellitus with hyperglycemia Code(s): E11.65 - Type 2 diabetes mellitus with hyperglycemia Status: Acute Assessment and Plan: On Glimepiride and Metformin ISS as needed Accu checks ACHS Carb consistent diet. (4) Metabolic encephalopathy: Code(s): G93.41 - Metabolic encephalopathy Status: Acute Assessment and Plan: Resolved Continue to monitor (5) Hypercalcemia: Code(s): E83.52 - Hypercalcemia Status: Acute Assessment and Plan: Calcium around 11. DS: Summary Hospital Course Hospital Course: 75 year old female with a past medical history of multiple myeloma, type 2 diabetes mellitus, and hyperthyroidism who presented to the ER from home for evaluation of increased weakness and increased confusion from baseline. Bp is better face less swollen, calcium improved. Time Spent with Patient Time attestation: Total time spent providing and/or coordinating discharge services:40 minutes on day of discharge Exam Const: General: other (Chronically ill looking, elderly lady ) Nutritional Appearance: thin Neck: Neck: no lymphadenopathy, supple and no JVD Lymphatic: no lymphadenopathy noted Resp: Effort & Inspection: able to speak in complete sentences Auscultation: clear to auscultation bilaterally Cardio: Jugular venous distension: no JVD Rate: regular rate Rhythm: regular rhythm GI: Inspection: normal to inspection Skin: General skin exam: normal color Rashes: no rashes Wounds: no wounds Neuro: General: patient oriented x3 and CN's II-XI intact bilaterally Cranial nerves: Yes CN's II-XII intact bilaterally and Yes Equal, round and reactive pupils present Cognition (Neuro): abnormal cognition (pleasantly confused ) Speech: normal speech Motor exam (neuro): 5/5 motor strength present throughout Extrem: General: no pedal edema DS: Data Data Completed and Pending Labs on day of discharge: Labs from last 24 hours 09/25/20 09/24/20 09/24/20 04:34 20:17 17:11 WBC RBC Hgb Hct MCV MCH MCHC RDW Plt Count MPV Immature Gran % (Auto) Neut % (Auto) Lymph % (Auto) [place] % (Auto) Eos % (Auto) Baso % (Auto) Lymph # (Auto) [place] # (Auto) Eos # (Auto) Baso # (Auto) Abs Immat Gran (auto) Absolute Neuts (auto) Absolute Nucleated RBC Nucleated RBC % Sodium 142 Potassium 3.4 Chloride 103 Carbon Dioxide 35 H Anion Gap 4 L BUN 14 Creatinine 0.90 Estim Creat Clear Calc 40 Estimated GFR > 60 Glucose 102 POC Capillary Glucose 119 H 101 Calcium 11.3 H Total Bilirubin AST ALT Alkaline Phosphatase Total Protein Albumin 09/24/20 09/24/20 09/24/20 13:49 13:49 11:40 WBC 8.5 RBC 4.53 Hgb 12.6 Hct 38.9 MCV 85.9 MCH 27.8 MCHC 32.4 RDW 17.1 H Plt Count 386 H MPV 8.9 Immature Gran % (Auto) 0.5 Neut % (Auto) 71.8 Lymph % (Auto) 16.1 L [place] % (Auto) 10.4 H Eos % (Auto) 0.8 Baso % (Auto) 0.4 Lymph # (Auto) 1.36 [place] # (Auto) 0.9 H Eos # (Auto) 0.1 Baso # (Auto) 0.0 Abs Immat Gran (auto) 0.04 H Absolute Neuts (auto) 6.1 Absolute Nucleated RBC 0.0 Nucleated RBC % 0.4 H Sodium 139 Potassium 4.1
[2020-09-25 09:09] LABS: Glucose Point of Care 104 (65-105)
[2020-09-25 09:12] VITALS: BP 152/88; PULSE 102; RESP 22; TEMP 36.5; O2SAT 98
== END 2020-09-25 10:23 | disposition home health service (06) | DRG 291 ==
LOC: ANHED 17:08 → ANHIMU 23:05
PROVIDERS: Family Medicine; Internal Medicine; Admitting Provider Internal Medicine; Emergency Provider Emergency Medicine; PCP Internal Medicine Infectious Disease; Visit Provider Internal Medicine
DX: I11.0 Hypertensive heart disease with heart failure (principal); G93.41 Metabolic encephalopathy; C90.00 Multiple myeloma not having achieved remission; Z20.822 Contact with and (suspected) exposure to COVID-19; I16.0 Hypertensive urgency; E86.0 Dehydration; E05.90 Thyrotoxicosis, unspecified without thyrotoxic crisis or storm; E11.65 Type 2 diabetes mellitus with hyperglycemia; E83.52 Hypercalcemia; K21.9 Gastro-esophageal reflux disease without esophagitis; I50.9 Heart failure, unspecified; J44.9 Chronic obstructive pulmonary disease, unspecified; E78.5 Hyperlipidemia, unspecified; G47.33 Obstructive sleep apnea (adult) (pediatric); F17.210 Nicotine dependence, cigarettes, uncomplicated; Z90.49 Acquired absence of other specified parts of digestive tract; Z95.1 Presence of aortocoronary bypass graft
CPT/HCPCS: 36415; 70450; 71045; 72125; 74176; 80048; 80053; 81001; 82010; 82948; 83036; 83605; 83690; 84100; 84436; 84443; 85025; 85027; 85610; 85730; 87040; 93005; 94640; 96374; 96375; 97110; 97162; 97165; 97530; 97535; 99285; A9270; C9803; J0360; J1650; J1815; J7030; J7040; J7120; U0003; U0005